=== PATIENT | female | born 1985 | race Caucasian/White ===

== ENCOUNTER 2017-06-15 16:39 | Emergency (ER) | payer OTHER ==
[~2017-06-15] VITALS: Ht 160 cm; Wt 77.3 kg
[~2017-06-15 16:39] MED LIST: SULF-168 PO
[2017-06-15 17:08] VITALS: BP 155/78
[2017-06-15] MEDS ORDERED: BUPR75 PO (17:12)
[2017-06-15] MEDS ORDERED: METH10 PO (17:12)
== END 2017-06-15 19:05 | disposition left against medical advice (07) ==
LOC: EMS 16:40
DX: Z53.21 Procedure and treatment not carried out due to patient leaving prior to being seen by health care provider (principal)